=== PATIENT | female | born 1970 | race Caucasian/White ===

== ENCOUNTER 2020-08-07 15:59 | Outpatient (CLI) | payer MEDICAID ==
[2020-08-07 16:34] LABS: ALBUMIN 4.8 g/dL (3.2-5.5); ALBUMIN/GLOBULIN RATIO 1.4 (1.0-2.2); BILIRUBIN,TOTAL 0.7 mg/dL (0.2-1.0); CALCIUM 9.5 mg/dL (8.5-10.3); CREATININE 0.6 mg/dL (0.4-1.0); TOTAL PROTEIN 8.3 g/dL (6.7-8.2)
[2020-08-07 17:20] LABS: FOLLICLE STIMULATING HORMONE 21.73 mIU/mL
[2020-08-07 20:17] LABS: HEMOGLOBIN A1c% 5.7 % (4.27-6.07)
== END 2020-08-07 16:00 | disposition home or self-care (01) ==
LOC: LAB 15:59
PROVIDERS: ATTEND Obstetrics & Gynecology
DX: Z00.00 Encounter for general adult medical examination without abnormal findings (principal); E03.9 Hypothyroidism, unspecified; Z13.1 Encounter for screening for diabetes mellitus; N95.9 Unspecified menopausal and perimenopausal disorder
CPT/HCPCS: 80053; 81599; 82670; 83001; 83036; 83520; 84443